=== PATIENT | male | born 1970 | race Caucasian/White ===

== ENCOUNTER 2017-04-20 22:43 | Emergency (ER) | payer OTHER ==
[~2017-04-20] VITALS: Ht 154.9 cm; Wt 92.1 kg
[2017-04-20 23:04] VITALS: Ht 154.9 cm; Wt 92.1 kg
[2017-04-21 04:30] VITALS: BP 142/103
== END 2017-04-21 04:30 | disposition left against medical advice (07) ==
LOC: ED 22:43
DX: Z53.21 Procedure and treatment not carried out due to patient leaving prior to being seen by health care provider (principal)